=== PATIENT | female | born 1965 | race Caucasian/White ===

== ENCOUNTER 2024-09-23 16:21 | Outpatient (CLI) | payer OTHER, SELFPAY ==
[2024-09-25 17:51] LABS: HPV Source Cervix
[2024-09-28 13:12] LABS: Pap Test Digital Imaging Done
== END 2024-09-23 16:22 | disposition home or self-care (01) ==
PROVIDERS: Visit Provider Registered Nurse
DX: Z12.4 Encounter for screening for malignant neoplasm of cervix (principal); R53.83 Other fatigue; Z11.51 Encounter for screening for human papillomavirus (HPV)
CPT/HCPCS: 82306; 84443; 87624; 87625; 88141; 88142; 88175